=== PATIENT | female | born 1945 | race Caucasian/White ===

== ENCOUNTER 2017-10-25 16:45 | Inpatient (IN) ==
[2017-10-25] MEDS ORDERED: Naloxone 0.4 MG/ML INJ IVP PRN (18:52)
--- NOTE | 2017-10-25 19:09 | Internal Med History&Physical ---
<Charles Montague J - Last Filed: 10/25/17 19:03> Date of Encounter: 10/25/17 Time of Encounter: 19:03 Assessment and Plan (1) N&V (nausea and vomiting) Status: Acute N/V which began yesterday [facility]. She denies any episodes of vomiting today. Resume normal diet and promote fluid intake. No abnormalities noted on metabolic panel. BMP in the am. Antiemetics PRN for n/v Qualifiers: Vomiting type: unspecified Vomiting Intractability: non-intractable Qualified Code(s): R11.2 - Nausea with vomiting, unspecified (2) Elevated troponin Status: Acute Denies any CP, diaphoresis, or SOB. Does not appear to be in acute cardiac distress. Reports multiple episodes of sinus tachycardia lasting approximately 45 seconds this afternoon while at [place]. This is likely the cause for the elevation in troponin. She is currently not on any ASA or statin. d/t elevation in troponins I will start both now. Serial troponins, ekg now and in the am continuous tele continuous spo2 monitoring 81mg ASA QD but I will give 324 ASA now as she has no had any today. Simvastatin 40 mg daily at bedtime lipid panel in the am TTE (3) Sinus tachycardia Status: Acute etiology unclear. She reports no prior h/o cardiac disease with no prior tachycardic episodes. Currently SB with a rate of 55. She denies any CP/ pressure or discomfort. Resting comfortably without any distress and remains hemodynamically stable. continuous tele consult cardio-spoke with Dr. Herrera who has agreed to see the patient (4) HTN (hypertension) Status: Acute Mild HTN at 159/86. She is also bradycardic with a rate of 55. I will refrain from giving IV antihypertensives at this time at the risk of diminishing cardiac output. Continue home antihypertensives Qualifiers: Hypertension type: unspecified Qualified Code(s): I10 - Essential (primary ) hypertension (5) Left leg DVT Status: Acute LLE dx last week at [place]. Was placed on lovenox 65mg sc dialy. Continue this med at current dose. Leg appears to be mildly tender to palpation has palpable circulation in DP/PT Qualifiers: Affected thrombotic vein of extremity: unspecified vein of extremity Chronicity: acute Qualified Code(s): I82.402 - Acute embolism and thrombosis of unspecified deep veins of left lower extremity (6) DVT prophylaxis Status: Acute see plan above Internal Medicine - H&P: HPI Chief complaint: N/V x1 day, tachycardia, elevated troponin Admitted From: Home Plans for Post Hospital Care: Home History of present illness: Ms. Dahl is a 72 year old female with PMH of anxiety, insomia, HTN, GERD, asthma, and diagnosis of DVT in LT lower leg last week. Presents today from [place] d/t elevated troponin and concern for ACS. She states that she has not had any CP at all but did notice some fluttering. She reports a similar event 1 -week ago. She denies any fevers, fatigue, dyspnea, diaphoresis, SOB, syncope. Admits to palpitations, and N/V. While at [place] she was found to have an elevated troponin with a peak of 0.7 with an EKG showing NSR with a rate of 70. Past Med Surg Social Fam HX - Past Medical History Medical history: arthritis, asthma, DVT, GERD, hypertension Psychiatric history: anxiety - Past Surgical History Surgical History: appendectomy, cataract, cholecystectomy, hysterectomy, other - Social History Smoking Status: Never smoker Alcohol use: none Drug use: none - Family History Grandmother Hx Family Cardiac Disorders: Yes ([place]) Hx Family Cancer: Yes (breast) Internal Medicine - H&P: Meds Albuterol Sulfate [Proventil Hfa] 2 puff IH Q4H PRN 10/25/17 [History] Ferrous Sulfate [Iron] 325 mg PO TID 10/25/17 [History] Gabapentin [Neurontin] 300 mg PO DAILY 10/25/17 [History] Hydrocortisone 1% CREAM [Cortaid] 1 appl TP QID 10/25/17 [History] Melatonin 5 mg PO HS PRN 10/25/17 [History] Ondansetron HCl [Zofran] 4 mg PO Q6H PRN 10/25/17 [History] Pantoprazole Sodium [Protonix] 40 mg PO DAILY 10/25/17 [History] Polyethylene Glycol 3350 [MiraLAX] 17 gm PO DAILY 10/25/17 [History] amLODIPine [Norvasc] 5 mg PO DAILY 10/25/17 [History] traZODone [TraZODone] 50 mg PO HS 10/25/17 [History] Aspirin 325 mg PO DAILY 10/26/17 [History] Bisacodyl [Dulcolax] 10 mg PO DAILY PRN 10/26/17 [History] Ibuprofen [Motrin] 400 mg PO Q4H PRN 10/26/17 [History] Rivaroxaban [Xarelto] 15 mg PO BID tablet 10/28/17 [Rx] Tramadol HCl [Ultram] 100 mg PO QAM AND QHS #10 tablet 10/28/17 [Rx] 3 Allergy/AdvReac Type Severity Reaction Status Date / Time Sulfa (Sulfonamide Allergy See Verified 10/25/17 17:59 Antibiotics) Comments All Systems PM: A 10-system review of systems was performed and is negative for pertinent findings except as documented above in the HPI. Review of systems: REVIEW OF SYSTEMS GENERAL: Negative for any nausea, vomiting, fevers, chills, or weight loss. NEUROLOGIC: Negative for any blurry vision, blind spots, double vision, facial asymmetry, dysphagia, dysarthria, hemiparesis, hemisensory deficits, vertigo, ataxia. HEENT: Negative for any head trauma, neck trauma, neck stiffness, photophobia, phonophobia, sinusitis, rhinitis. CARDIAC: Negative for any chest pain, dyspnea on exertion, paroxysmal nocturnal dyspnea, peripheral edema. Positive for tachycardia and palpitations PULMONARY: Negative for any shortness of breath, wheezing, COPD, or TB exposure. GASTROINTESTINAL: Negative for any abdominal pain, bright red blood per rectum, melena. Positive for nausea and vomiting GENITOURINARY: Negative for any dysuria, hematuria, incontinence. INTEGUMENTARY: Negative for any rashes, cuts, insect bites. RHEUMATOLOGIC: Negative for any joint pains, photosensitive rashes, history of vasculitis or kidney problems. HEMATOLOGIC: Negative for any abnormal bruising, frequent infections or bleeding. - Constitutional Vitals: Temp Pulse Resp BP Pulse Ox 98.1 F 52 15 159/86 97 10/25/17 18:01 10/25/17 18:01 10/25/17 18:01 10/25/17 18:01 10/25/17 18:01 General appearance: Present: cooperative, A&O X 3, no acute distress, answers questions appropriately Exam: PHYSICAL EXAMINATION: GENERAL: The patient is a well-developed, well-nourished male in no apparent distress. He is alert and oriented x3. VITAL SIGNS: Temperature 98.4, pulse 72, respirations 18, blood pressure 146/78 , and O2 saturation 96% on room air. HEENT: Head is normocephalic and atraumatic. Extraocular muscles are intact. Pupils are equal, round, and reactive to light and accommodation. Nares appeared normal. Mouth is well hydrated and without lesions. Mucous membranes are moist. Posterior pharynx clear of any exudate or lesions. NECK: Supple. No carotid bruits. No lymphadenopathy or thyromegaly. LUNGS: Clear to auscultation. HEART: Regular rate and rhythm without murmur. ABDOMEN: Soft, nontender, and nondistended. Positive bowel sounds. No hepatosplenomegaly was noted. EXTREMITIES: Without any cyanosis, clubbing, rash, lesions or edema. LLE with mild tenderness to palpation. DVT in LLE dx last week NEUROLOGIC: Cranial nerves II through XII are grossly intact. PSYCHIATRIC: Flat affect, but denies suicidal or homicidal ideations. SKIN: No ulceration or induration present. Internal Med - H&P Results - EKG Data -: EKG Interpreted by Myself EKG shows normal: sinus rhythm Rate: normal - EKG Data Prior EKG available for review: yes When compared to previous EKG: there is no significant change Interpretation IM: normal EKG EKG comments: EKG from [place] shows normal sinus rhythm rate of 70 with non-specific ST changes 10/25/17 19:12 - Diagnostic Studies CT scan - abdomen Status: image reviewed by me Additional comments: no acute abdominal abnormalities per radiology read at [place] Chest x-ray Status: image reviewed by me Additional comments: stable exam per Radiology read from [place] <Carmen New - Last Filed: 11/20/17 08:49> Date of Encounter: 11/20/17 Internal Medicine - H&P: HPI History of present illness: Ms. Dahl is a 72 year old female All Systems PM: A 10-system review of systems was performed and is negative for pertinent findings except as documented above in the HPI. - Constitutional Vitals: Temp Pulse Resp BP Pulse Ox 97.8 F 62 14 146/93 98 10/28/17 11:01 10/28/17 11:01 10/28/17 11:01 10/28/17 11:01 10/28/17 11:01 Internal Med - H&P Results - Labs CBC & Chem 7: 10/28/17 05:48 10/28/17 07:40 - Impressions ITS Impressions Echocardiogram 10/26/17 10:00 Impressions: LVEF 65%. Normal LV chamber size, wall thickness and function. Mild left ventricular diastolic dysfunction. Normal right ventricular structure and function. No evidence of pulmonary hypertension. No significant valvular dysfunction. Left Ventricular Wall Motion: Rest Echo Findings All wall segments showed normal motion. Findings: Study Quality * Technically adequate exam. ECG Findings * Sinus bradycardia. Left Ventricle * LVEF 65%. * Normal LV chamber size, wall thickness and function. * Mild left ventricular diastolic dysfunction. Right Ventricle * Normal right ventricular structure and function. Left Atrium * Mild to moderately dilated left atrium. Right Atrium * Normal right atrial size. Interatrial Septum * Interatrial septum not well evaluated. Aortic Valve * Grossly, trilealfet aortic valve. Normal function. * No aortic regurgitation. * No aortic stenosis. Mitral Valve * Normal mitral valve structure and function. * No mitral regurgitation. * No mitral stenosis. Tricuspid Valve * Normal tricuspid valve structure and function. * Trace tricuspid regurgitation. * No evidence of pulmonary hypertension. Pulmonic Valve * Pulmonic valve not well visualized. Aorta * Normally sized aortic root. Pericardium * The pericardium appears normal. * Appearance is consistent with a {type} mitral valve replacement. Function appears {function{. IVC * Normal IVC dimensions and inspiratory collapse. Pulmonary Artery * Normal visualized portions of the main pulmonary artery. Chest CTA 10/26/17 10:58 IMPRESSION: 2 small PEs to both the left lower lobe and right upper lobe. Mild bibasilar atelectasis. Slight to mild bullous changes. Suggestion of right heart strain despite the small clot burden. D/ / Modesto Burgess MD / Modesto Burgess MD Interpreting Provider: Modesto Burgess MD - Attending Attestation I personally and independently interviewed and examined the patient with ASSISTANT BANQUET MANAGER, and I reviewed the patient's medical record with her. I am in agreement with the assessment and proposed treatment plan. I discussed my findings and recommendation with the patient and answer all questions. The patient's medical records were edited to accurately reflect this encounter.
[2017-10-25] MEDS ORDERED: Aspirin 325 MG TABLET PO ONE (19:38)
[2017-10-25] MEDS: traMADol 50 MG TABLET PO SCH (20:24)
[2017-10-25] MEDS: traZODone 50 MG TABLET PO SCH (20:24)
[2017-10-26] MEDS: Melatonin 3 MG TABLET PO PRN ×2 (00:40→23:42)
[2017-10-26 01:23] LABS: Basophils # 0.1 K/mcL (0.0-0.2); Basophils % 1.1 %; Eosinophils # 0.1 K/mcL (0.0-0.6); Eosinophils % 2.2 %; Hemoglobin 11.7 g/dL (11.5-15.4); Immature Granulocytes % 0.3 % (0-4); Lymphocytes # 1.6 K/mcL (0.6-4.6); Mean Corpuscular HGB Conc 31.6 g/dL (31.6-35.5); Mean Corpuscular Hemoglobin 27.1 pg (28.0-33.3); Mean Corpuscular Volume 85.8 fL (83.0-100.0); Monocytes # 0.7 K/mcL (0.0-1.3); Monocytes % 10.4 %; Neutrophils # 3.8 K/mcL (1.6-8.9); Platelet Count 316 K/mcL (140-400); Red Blood Count 4.31 M/mcL (3.82-4.97); Red Cell Distribution Width 19.3 % (11.5-14.5)
[2017-10-26 01:36] LABS: BUN/Creatinine Ratio 16 (6-26); Blood Urea Nitrogen 12 mg/dL (8-23); Carbon Dioxide 23 mEq/L (23-29); Chloride 111 mEq/L (98-107); Glucose 77 mg/dL (70-105); Osmolality,Calculated 293 (280-300); Potassium 3.3 mEq/L (3.5-5.1); Sodium 142 mEq/L (136-145); eGFR For African Americans > 60 (> 60); eGFR For Non-African Americans > 60 (> 60)
[2017-10-26] MEDS: Ondansetron 4 MG/2 ML VIAL IVP SCH ×5 (05:22→23:43)
[2017-10-26] MEDS ORDERED: *HR* Enoxaparin 80 MG/0.8 ML SYRINGE SQ SCH (09:00)
[2017-10-26] MEDS: traMADol 50 MG TABLET PO SCH ×2 (09:03→21:19)
[2017-10-26] MEDS: amLODIPine 5 MG TABLET PO SCH (09:03)
[2017-10-26] MEDS: Aspirin 81 MG TAB.CHEW PO SCH (09:03)
[2017-10-26] MEDS: Gabapentin 300 MG CAPSULE PO SCH (09:03)
--- NOTE | 2017-10-26 09:56 | Cardiology Consult Note ---
<Ke Lanza - Last Filed: 10/26/17 11:03> Date of Encounter: 10/26/17 Time of Encounter: 09:15 Assessment and Plan (1) Elevated troponin Current Visit: Yes Status: Acute Patient presented with elevated troponin level at 0.07; this has since decreased to 0.06. -Currently denies having any chest pain or palpitations. -Echocardiogram has been ordered. -Continuous telemetry and SPO2 monitoring. -81 mg ASA daily -Serial troponin. -Possible LHC tomorrow pending results of LE doppler and CTA chest. (2) Sinus bradycardia Current Visit: Yes Status: Acute Patient presented with heart rate of 55 bpm. Currently on Norvasc 5 mg by mouth daily (3) HTN (hypertension) Current Visit: Yes Status: Acute Norvasc 5 mg by mouth daily. Avoid the use of IV hypertensives due to bradycardia. Current blood pressure is 129/84. Qualifiers: Hypertension type: unspecified Qualified Code(s): I10 - Essential (primary ) hypertension (4) Left leg DVT Current Visit: Yes Status: Acute LLE dx last week at [place]. -Was placed on lovenox 65mg sc dialy. -Leg appears to be mildly tender to palpation has palpable circulation in DP/PT -Admits to 2 other blood clots in the same leg in the last 3 years. Plan: -LE doppler ordered; CTA of chest to rule out PE Qualifiers: Affected thrombotic vein of extremity: unspecified vein of extremity Chronicity: acute Qualified Code(s): I82.402 - Acute embolism and thrombosis of unspecified deep veins of left lower extremity Discussion w patient/family: The assessment and plan as outlined above was discussed with the patient and/or family members who expressed understanding and agreement. All questions were answered. Thank you for involving us in the care of your patient. Please call with any questions. History of Present Illness Consult date: 10/26/17 Chief complaint: Nausea and vomiting, palpitations History of present illness: Ms. Dahl is a 72 year old female with a past medical history of anxiety, insomnia, hypertension, GERD, asthma, and DVT in L lower extremity presented to the emergency department for ACS evaluation. Patient presented from [place]. Patient stated that she felt nausea and vomiting while at [facility] the previous day. She complained of several episodes of palpitations, lasting approximately 45 seconds. During these episodes, patient denied having any chest pain. She was found to have an elevated troponin level with a peak of 0.7 , EKG demonstrated normal sinus rhythm with a heart rate of 70. Upon presentation to the hospital, patient had a low heart rate of 55 bpm. Denied having any chest pain, pressure, or discomfort. Denied having any previous cardiac history. Blood pressure was elevated at 159/86. All other vital signs were within normal limits. Was placed on continuous cardiac monitoring. Echocardiogram was ordered. Patient was seen and examined at bedside this morning. Currently has no complaints at this time. Denies having any chest pain, palpitations, shortness of breath, fever, chills, nausea, or vomiting. Past Med Surg Social Fam HX - Past Medical History Medical history: arthritis, asthma, DVT, GERD, hypertension Psychiatric history: anxiety - Past Surgical History Surgical History: appendectomy, cataract, cholecystectomy, hysterectomy, other - Social History Smoking Status: Never smoker Alcohol use: none Drug use: none - Family History Grandmother Hx Family Cardiac Disorders: Yes ([place]) Hx Family Cancer: Yes (breast) Medications and Allergies Albuterol Sulfate [Proventil Hfa] 2 puff IH Q4H PRN 10/25/17 [History] Enoxaparin [Lovenox] 65 mg SQ DAILY 10/25/17 [History] Ferrous Sulfate [Iron] 325 mg PO TID 10/25/17 [History] Gabapentin [Neurontin] 300 mg PO DAILY 10/25/17 [History] Hydrocortisone 1% CREAM [Cortaid] 1 appl TP QID 10/25/17 [History] Melatonin 5 mg PO HS PRN 10/25/17 [History] Ondansetron HCl [Zofran] 4 mg PO Q6H PRN 10/25/17 [History] Pantoprazole Sodium [Protonix] 40 mg PO DAILY 10/25/17 [History] Polyethylene Glycol 3350 [MiraLAX] 17 gm PO DAILY 10/25/17 [History] Tramadol HCl [Ultram] 100 mg PO QAM AND QHS 10/25/17 [History] amLODIPine [Norvasc] 5 mg PO DAILY 10/25/17 [History] traZODone [TraZODone] 50 mg PO HS 10/25/17 [History] Aspirin 325 mg PO DAILY 10/26/17 [History] Bisacodyl [Dulcolax] 10 mg PO DAILY PRN 10/26/17 [History] Ibuprofen [Motrin] 400 mg PO Q4H PRN 10/26/17 [History] 3 Allergy/AdvReac Type Severity Reaction Status Date / Time Sulfa (Sulfonamide Allergy See Verified 10/25/17 17:59 Antibiotics) Comments All Systems Review: A 10-system review of systems was performed and is negative for pertinent findings except as documented above in the HPI. - Constitutional Constitutional: no fatigue, no fever(s), no frequent falls, no lethargy - Cardiovascular Cardiovascular: no diaphoresis, no dyspnea at rest, no dyspnea on exertion, no irregular heart rhythm, no radiating jaw, neck or arm pain - Neurological Neurological: no syncope Physical Examination Vital Signs, Last 4 Hours Temp Pulse Resp BP Pulse Ox 10/26/17 07:34 97.7 F 50 18 162/95 95 General: Conversant, No Apparent Distress HEENT: Atraumatic, Normocephaly, Mucus Membranes Moist Neck: No JVD, Normal carotid pulses Cardiac: Normal S1 and S2, No Murmur Lungs: Normal Breath Sounds, No Wheeze, Rales, Rhonchi Neuro: Alert and responsive, No focal deficits noted Skin: No rashes noted on visualized skin Musculoskeletal: No Chest Wall Tenderness Extremities: No Clubbing, No Cyanosis, No Edema, Normal Pulses Results 10/26/17 00:50 10/26/17 00:50 Lab Results 10/25/17 10/26/17 10/26/17 19:37 00:50 00:50 WBC 6.2 Hgb 11.7 Hct 37.0 Plt Count 316 Sodium Potassium Chloride Carbon Dioxide BUN Creatinine Glucose Calcium Troponin I 0.07 H* 0.06 H* 10/26/17 00:50 WBC Hgb Hct Plt Count Sodium 142 Potassium 3.3 L Chloride 111 H Carbon Dioxide 23 BUN 12 Creatinine 0.73 Glucose 77 Calcium 9.0 Troponin I Consult Discharge Plan - Plan Referrals: Terell Castillo MD [Primary Care Provider] - <Jens Herrera - Last Filed: 10/26/17 20:16> Date of Encounter: 10/26/17 Time of Encounter: 11:05 - Attending Attestation I examined this patient and my medical decision-making was reviewed with the Resident Physician. I agree with the documented findings, disposition and treatment plan as described except to the extent set forth below. 1. Elevated troponin: Unclear significance, adynamic, no acute EKG changes, will continue to monitor, echo ordered to eval LV functionm, discussed left heart cath, await results of lower ext doppler and CT scan, will monitor renal function after dye load before proceed left heart catheterization. 2. DVT reported left leg one week ago, will repeat lower ext doppler, Chest CT to rule out PE 3. Sinus bradycardia, continue to monitor 4. Hypertension, controlled. Assessment and Plan Discussion w patient/family: The assessment and plan as outlined above was discussed with the patient and/or family members who expressed understanding and agreement. All questions were answered. Thank you for involving us in the care of your patient. Please call with any questions. History of Present Illness History of present illness: Ms. Dahl is a 72 year old female All Systems Review: A 10-system review of systems was performed and is negative for pertinent findings except as documented above in the HPI. Results 10/26/17 00:50 10/26/17 00:50 Lab Results 10/25/17 10/26/17 10/26/17 19:37 00:50 00:50 WBC 6.2 Hgb 11.7 Hct 37.0 Plt Count 316 Sodium Potassium Chloride Carbon Dioxide BUN Creatinine Glucose Calcium Troponin I 0.07 H* 0.06 H* 10/26/17 10/26/17 00:50 09:16 WBC Hgb Hct Plt Count Sodium 142 Potassium 3.3 L Chloride 111 H Carbon Dioxide 23 BUN 12 Creatinine 0.73 Glucose 77 Calcium 9.0 Troponin I 0.05 H*
--- NOTE | 2017-10-26 11:25 | Internal Med Progress Note ---
Date of Encounter: 10/26/17 Time of Encounter: 11:22 - Assessment and plan (1) Elevated troponin Current Visit: Yes Status: Acute Assessment and plan: Troponin trended down.. peaked @ 0.07 No CP EKG showed NSR, in complete RBBB, Non specific ST T changes inferior and lateral leads Card consulted Will ordered 2 D Echo Reasonable to check CTA of chest to r/o PE given recent LLL DVT and on sub therapeutic dose of anti coag meds Inc Lovenox to 65 mg BID now cont close monitoring (2) Intractable nausea and vomiting Current Visit: Yes Status: Acute Assessment and plan: unclear etiology could be viral GE vs ?? MD improved cont symptomatic and supportive care Qualifiers: Qualified Code(s): R11.2 - Nausea with vomiting, unspecified (3) HTN (hypertension) Current Visit: Yes Status: Acute Assessment and plan: stable with home meds Qualifiers: Hypertension type: unspecified Qualified Code(s): I10 - Essential (primary ) hypertension (4) Sinus bradycardia Current Visit: Yes Status: Acute Assessment and plan: HR in 50's now Not on any B gian cont close monitoring asymptomatic now (5) Left leg DVT Current Visit: Yes Status: Acute Assessment and plan: was on sub therapeutic lovenox at home changed to 1mg /kg BID eventually will switch to PO Xarelto Also ordered venous doppler Qualifiers: Affected thrombotic vein of extremity: unspecified vein of extremity Chronicity: acute Qualified Code(s): I82.402 - Acute embolism and thrombosis of unspecified deep veins of left lower extremity - Subjective Interval history: Ms. Dahl is a 72 year old female with PMH of anxiety, insomnia, HTN, GERD, asthma, and recent diagnosis of DVT in LT lower leg last week currently on Lovenox 65mg SQ daily, was transferred to our hospital from [place] d/t elevated troponin and concern for ACS. Pt did go there with sudden onset of intractable nausea and vomiting with epigastric discomfort. She denied any CP / SOB. Her nausea / vomiting are better today. feels little better today. Still has pain in Left leg - Constitutional Vitals: Temp Pulse Resp BP Pulse Ox 97.7 F 50 18 162/95 95 10/26/17 07:34 10/26/17 07:34 10/26/17 07:34 10/26/17 07:34 10/26/17 07:34 General appearance: Present: cooperative, A&O X 3, no acute distress, answers questions appropriately - Head Head exam: Present: atraumatic, normal inspection - Neck Neck exam general surgery: Present: supple - Respiratory Respiratory exam: Present: decreased breath sounds, wheezes. Absent: rales, respiratory distress, rhonchi - Cardiovascular Cardiovascular exam: Present: bradycardia, +S1, +S2 - GI/Abdominal GI/Abdominal exam: Present: normal bowel sounds, soft. Absent: distended, rebound, rigid, tenderness - Extremities Exam Extremities exam: Present: pedal edema (left lower leg), tenderness (left leg). Absent: calf tenderness - Back Exam Back exam: Absent: CVA tenderness (L), CVA tenderness (R) - Neurological Exam Neurological exam: Present: alert, oriented X3 - Psychiatric Psychiatric exam: Present: normal affect, normal mood Internal Medicine: Result - Labs CBC & Chem 7: 10/26/17 00:50 10/26/17 00:50 Labs: Short CBC 10/26/17 Range/Units 00:50 WBC 6.2 (4.3-11.1) K/mcL Hgb 11.7 (11.5-15.4) g/dL Hct 37.0 (35.3-44.9) % Plt Count 316 (140-400) K/mcL Neutrophils # 3.8 (1.6-8.9) K/mcL BMP 10/26/17 00:50 Sodium 142 Potassium 3.3 L Chloride 111 H Carbon Dioxide 23 BUN 12 Creatinine 0.73 Glucose 77 Calcium 9.0 Cardiac Enzymes 10/25/17 10/26/17 10/26/17 Range/Units 19:37 00:50 09:16 Troponin I 0.07 H* 0.06 H* 0.05 H* (< 0.04) ng/mL Consult Discharge Plan - Plan Referrals: Terell Castillo MD [Primary Care Provider] -
[2017-10-26] MEDS: *HR* Enoxaparin 60 MG/0.6 ML SYRINGE SQ SCH (21:19)
[2017-10-26] MEDS: traZODone 50 MG TABLET PO SCH (21:19)
[2017-10-27] MEDS: Ondansetron 4 MG/2 ML VIAL IVP SCH (05:23)
[2017-10-27] MEDS ORDERED: Ondansetron 4 MG/2 ML VIAL IVP PRN (07:59)
[2017-10-27 09:35] LABS: BUN/Creatinine Ratio 26 (6-26); Blood Urea Nitrogen 18 mg/dL (8-23); Carbon Dioxide 22 mEq/L (23-29); Chloride 111 mEq/L (98-107); Chol/HDL Ratio 2.8 (0-4.9); Cholesterol 156 mg/dL (< 200); Glucose 79 mg/dL (70-105); HDL Cholesterol 55 mg/dL (40-59); LDL Cholesterol,Calculated 85 mg/dL (0-99); Osmolality,Calculated 293 (280-300); Potassium 4.4 mEq/L (3.5-5.1); Sodium 141 mEq/L (136-145); Triglycerides 79 mg/dL (< 150); eGFR For African Americans > 60 (> 60); eGFR For Non-African Americans > 60 (> 60)
[2017-10-27] MEDS: Gabapentin 300 MG CAPSULE PO SCH (09:49)
[2017-10-27] MEDS: amLODIPine 5 MG TABLET PO SCH (09:49)
[2017-10-27] MEDS: Aspirin 81 MG TAB.CHEW PO SCH (09:49)
[2017-10-27] MEDS: traMADol 50 MG TABLET PO SCH ×2 (09:50→20:39)
[2017-10-27] MEDS: *HR* Enoxaparin 60 MG/0.6 ML SYRINGE SQ SCH ×2 (09:50→20:40)
--- NOTE | 2017-10-27 10:09 | Cardiology Progress Note ---
Date of Encounter: 10/27/17 Time of Encounter: 10:00 Assessment and Plan (1) Pulmonary emboli Current Visit: Yes Status: Acute CTA demonstrated the following: -2 small PEs to both the left lower lobe and right upper lobe. -Mild bibasilar atelectasis. -Slight to mild bullous changes. -Suggestion of right heart strain despite the small clot burden. -Patient currently asymptomatic. Plan: -Lovenox dose 65mg SQ BID -ECHO ordered Qualifiers: Qualified Code(s): I26.99 - Other pulmonary embolism without acute cor pulmonale (2) Elevated troponin Current Visit: Yes Status: Acute Patient presented with elevated troponin level at 0.07; this has since decreased to 0.05. -Currently denies having any chest pain or palpitations. -Echocardiogram has been ordered. -Continuous telemetry and SPO2 monitoring. -81 mg ASA daily (3) Sinus bradycardia Current Visit: Yes Status: Acute Patient presented with heart rate of 55 bpm. Currently on Norvasc 5 mg by mouth daily (4) HTN (hypertension) Current Visit: Yes Status: Acute Norvasc 5 mg by mouth daily. Avoid the use of IV hypertensives due to bradycardia. Qualifiers: Hypertension type: unspecified Qualified Code(s): I10 - Essential (primary ) hypertension (5) Left leg DVT Current Visit: Yes Status: Acute LLE dx last week at [facility]. -Was placed on lovenox 65mg sc dialy. -Leg appears to be mildly tender to palpation has palpable circulation in DP/PT -Admits to 2 other blood clots in the same leg in the last 3 years. LE Doppler on10/26/17 demonstrated: -Normal RLE deep and superficial venous exam. 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 -Normal LLE superficial venous exam. Plan: -[place]inue Lovenox 65 mg SQ BID Qualifiers: Affected thrombotic vein of extremity: unspecified vein of extremity Chronicity: acute Qualified Code(s): I82.402 - Acute embolism and thrombosis of unspecified deep veins of left lower extremity Discussion w patient/family: The assessment and plan as outlined above was discussed with the patient and/or family members who expressed understanding and agreement. All questions were answered. Thank you for involving us in the care of your patient. Please call with any questions. Subjective Interval history: Patient seen and examined at bedside this morning. Patient denies having chest pain, shortness of breath, or palpitations. Patient is resting comfortably in bed and has no complaints at this time. Cardiology will sign off. Objective Vital Signs, Last 4 Hours Temp Pulse Resp BP Pulse Ox 10/27/17 06:47 97.7 F 94 14 128/89 98 General: Conversant, No Apparent Distress HEENT: Atraumatic, Normocephaly, Mucus Membranes Moist Neck: No JVD, Normal carotid pulses Cardiac: Reg Rate and Rhythm, Normal S1 and S2, No Murmur Lungs: Normal Breath Sounds, No Wheeze, Rales, Rhonchi Neuro: Alert and responsive, No focal deficits noted Skin: No rashes noted on visualized skin Musculoskeletal: No Chest Wall Tenderness Extremities: No Clubbing, No Cyanosis, No Edema, Normal Pulses Results 10/26/17 00:50 10/27/17 07:49 Lab Results 10/26/17 10/27/17 09:16 07:49 Sodium 141 Potassium 4.4 Chloride 111 H Carbon Dioxide 22 L BUN 18 Creatinine 0.69 Glucose 79 Calcium 9.0 Troponin I 0.05 H* Consult Discharge Plan - Plan Referrals: Terell Castillo MD [Primary Care Provider] -
--- NOTE | 2017-10-27 12:03 | Internal Med Progress Note ---
Date of Encounter: 10/27/17 Time of Encounter: 12:00 - Assessment and plan (1) Elevated troponin Current Visit: Yes Status: Acute Assessment and plan: likely secondary to acute PE Troponin trended down.. peaked @ 0.07 No CP EKG showed NSR, in complete RBBB, Non specific ST T changes inferior and lateral leads Card on board and consultation appreciated no further work up recommended at this time (2) HTN (hypertension) Current Visit: Yes Status: Acute Assessment and plan: stable with home meds Qualifiers: Hypertension type: unspecified Qualified Code(s): I10 - Essential (primary ) hypertension (3) Intractable nausea and vomiting Current Visit: Yes Status: Resolved Assessment and plan: resolved Qualifiers: Qualified Code(s): R11.2 - Nausea with vomiting, unspecified (4) Left leg DVT Current Visit: Yes Status: Acute Assessment and plan: was on sub therapeutic lovenox at home changed to 1mg /kg BID eventually will switch to PO Xarelto will start xarelto in am PT/OT evaluation requested Qualifiers: Affected thrombotic vein of extremity: unspecified vein of extremity Chronicity: acute Qualified Code(s): I82.402 - Acute embolism and thrombosis of unspecified deep veins of left lower extremity (5) Pulmonary emboli Current Visit: Yes Status: Acute Assessment and plan: b/l PE currently on lovenox 1mg/kg SQ BID will start Xarelto in am outpatient follow up with hematology Qualifiers: Pulmonary embolism type: other Chronicity: acute Acute cor pulmonale presence: without acute cor pulmonale Qualified Code(s): I26.99 - Other pulmonary embolism without acute cor pulmonale (6) Sinus bradycardia Current Visit: Yes Status: Acute Assessment and plan: HR in 50's now Not on any B gian cont close monitoring asymptomatic now (7) DVT prophylaxis Current Visit: Yes Status: Acute Assessment and plan: lovenox SQ - Subjective Interval history: Pt seen and examined at bedside. Resting in chair and denies any discomfort. Pt reports of being a resident of [facility] and states she is wheel chair bound at baseline States she used to be on coumadin however after her LLE DVT, her PCP switched her to Lovenox. She was noted to be on Lovenox SQ once a day and is currently admitted for acute PE. She states she is comfortable with using Lovenox SQ. - Constitutional Vitals: Temp Pulse Resp BP Pulse Ox 98.0 F 88 14 137/82 92 10/27/17 10:39 10/27/17 10:39 10/27/17 10:39 10/27/17 10:39 10/27/17 10:39 General appearance: Present: cooperative, A&O X 3, no acute distress, answers questions appropriately - Head Head exam: Present: atraumatic, normocephalic - Respiratory Respiratory exam: Present: CTAB. Absent: respiratory distress, wheezes - Cardiovascular Cardiovascular exam: Present: RRR, +S1, +S2. Absent: diastolic murmur, gallop, rubs, systolic murmur - GI/Abdominal GI/Abdominal exam: Present: normal bowel sounds, soft, no peritoneal signs. Absent: distended, tenderness - Extremities Exam Extremities exam: Present: warm, radial pulses palpable and symmetrical. Absent : calf tenderness, cyanotic, pedal edema - Neurological Exam Neurological exam: Present: alert, oriented X3 - Psychiatric Psychiatric exam: Present: normal affect, normal mood Internal Medicine: Result - Labs CBC & Chem 7: 10/26/17 00:50 10/27/17 07:49 Labs: BMP 10/27/17 07:49 Sodium 141 Potassium 4.4 Chloride 111 H Carbon Dioxide 22 L BUN 18 Creatinine 0.69 Glucose 79 Calcium 9.0 - Impressions Impressions Echocardiogram 10/26/17 10:00 Impressions: LVEF 65%. Normal LV chamber size, wall thickness and function. Mild left ventricular diastolic dysfunction. Normal right ventricular structure and function. No evidence of pulmonary hypertension. No significant valvular dysfunction. Left Ventricular Wall Motion: Rest Echo Findings All wall segments showed normal motion. Findings: Study Quality * Technically adequate exam. ECG Findings * Sinus bradycardia. Left Ventricle * LVEF 65%. * Normal LV chamber size, wall thickness and function. * Mild left ventricular diastolic dysfunction. Right Ventricle * Normal right ventricular structure and function. Left Atrium * Mild to moderately dilated left atrium. Right Atrium * Normal right atrial size. Interatrial Septum * Interatrial septum not well evaluated. Aortic Valve * Grossly, trilealfet aortic valve. Normal function. * No aortic regurgitation. * No aortic stenosis. Mitral Valve * Normal mitral valve structure and function. * No mitral regurgitation. * No mitral stenosis. Tricuspid Valve * Normal tricuspid valve structure and function. * Trace tricuspid regurgitation. * No evidence of pulmonary hypertension. Pulmonic Valve * Pulmonic valve not well visualized. Aorta * Normally sized aortic root. Pericardium * The pericardium appears normal. * Appearance is consistent with a {type} mitral valve replacement. Function appears {function{. IVC * Normal IVC dimensions and inspiratory collapse. Pulmonary Artery * Normal visualized portions of the main pulmonary artery. Chest CTA 10/26/17 10:58 IMPRESSION: 2 small PEs to both the left lower lobe and right upper lobe. Mild bibasilar atelectasis. Slight to mild bullous changes. Suggestion of right heart strain despite the small clot burden. D/ / Modesto Burgess MD / Modesto Burgess MD Interpreting Provider: Modesto Burgess MD Consult Discharge Plan - Plan Referrals: Terell Castillo MD [Primary Care Provider] -
[2017-10-27] MEDS: traZODone 50 MG TABLET PO SCH (23:20)
[2017-10-28 06:16] LABS: Basophils # 0.1 K/mcL (0.0-0.2); Basophils % 1.2 %; Eosinophils # 0.6 K/mcL (0.0-0.6); Eosinophils % 7.5 %; Hematocrit 41.5 % (35.3-44.9); Immature Granulocytes % 2.7 % (0-4); Lymphocytes # 2.3 K/mcL (0.6-4.6); Lymphocytes % 30.2 %; Mean Corpuscular HGB Conc 31.3 g/dL (31.6-35.5); Mean Corpuscular Hemoglobin 26.9 pg (28.0-33.3); Mean Corpuscular Volume 85.7 fL (83.0-100.0); Mean Platelet Volume 11.5 fL (9.4-12.4); Monocytes # 0.7 K/mcL (0.0-1.3); Monocytes % 9.7 %; Neutrophils # 3.6 K/mcL (1.6-8.9); Nucleated Red Blood Cells 1.3 /100 WBC (0); Platelet Count 313 K/mcL (140-400); Red Blood Count 4.84 M/mcL (3.82-4.97); Red Cell Distribution Width 19.1 % (11.5-14.5); Segmented Neutrophils % 48.7 %
[2017-10-28 08:02] LABS: BUN/Creatinine Ratio 24 (6-26); Blood Urea Nitrogen 16 mg/dL (8-23); Calcium 8.7 mg/dL (8.6-10.3); Carbon Dioxide 24 mEq/L (23-29); Chloride 110 mEq/L (98-107); Glucose 83 mg/dL (70-105); Magnesium 1.7 mg/dL (1.6-2.6); Osmolality,Calculated 290 (280-300); Phosphorous 4.4 mg/dL (2.7-4.5); Potassium 4.3 mEq/L (3.5-5.1); Sodium 140 mEq/L (136-145); eGFR For African Americans > 60 (> 60); eGFR For Non-African Americans > 60 (> 60)
[2017-10-28] MEDS ORDERED: *HR* Rivaroxaban 15 MG TABLET PO SCH (09:00)
[2017-10-28] MEDS: Aspirin 81 MG TAB.CHEW PO SCH (09:43)
[2017-10-28] MEDS: amLODIPine 5 MG TABLET PO SCH (09:43)
[2017-10-28] MEDS: traMADol 50 MG TABLET PO SCH (09:44)
[2017-10-28] MEDS: Gabapentin 300 MG CAPSULE PO SCH (09:44)
[2017-10-28 11:03] VITALS: BP 146/93
--- NOTE | 2017-10-28 11:14 | Discharge Summary ---
Date of Encounter: 10/28/17 Time of Encounter: 11:12 - Discharge Diagnosis (1) Elevated troponin Priority: Secondary Status: Acute (2) HTN (hypertension) Priority: Secondary Status: Chronic Qualifiers: Hypertension type: unspecified Qualified Code(s): I10 - Essential (primary ) hypertension (3) Intractable nausea and vomiting Priority: Secondary Status: Resolved Qualifiers: Vomiting type: unspecified Qualified Code(s): R11.2 - Nausea with vomiting , unspecified (4) Left leg DVT Priority: Secondary Status: Chronic Qualifiers: Affected thrombotic vein of extremity: unspecified vein of extremity Chronicity: acute Qualified Code(s): I82.402 - Acute embolism and thrombosis of unspecified deep veins of left lower extremity (5) Pulmonary emboli Priority: Primary Status: Acute Qualifiers: Pulmonary embolism type: other Chronicity: acute Acute cor pulmonale presence: without acute cor pulmonale Qualified Code(s): I26.99 - Other pulmonary embolism without acute cor pulmonale (6) Sinus bradycardia Priority: Secondary Status: Chronic (7) DVT prophylaxis Priority: Secondary Status: Acute - Discharge Medications Prescriptions: Tramadol HCl [Ultram] 100 mg PO QAM AND QHS #10 tablet Home Medications: Albuterol Sulfate [Proventil Hfa] 2 puff IH Q4H PRN 10/25/17 [History] Ferrous Sulfate [Iron] 325 mg PO TID 10/25/17 [History] Gabapentin [Neurontin] 300 mg PO DAILY 10/25/17 [History] Hydrocortisone 1% CREAM [Cortaid] 1 appl TP QID 10/25/17 [History] Melatonin 5 mg PO HS PRN 10/25/17 [History] Ondansetron HCl [Zofran] 4 mg PO Q6H PRN 10/25/17 [History] Pantoprazole Sodium [Protonix] 40 mg PO DAILY 10/25/17 [History] Polyethylene Glycol 3350 [MiraLAX] 17 gm PO DAILY 10/25/17 [History] amLODIPine [Norvasc] 5 mg PO DAILY 10/25/17 [History] traZODone [TraZODone] 50 mg PO HS 10/25/17 [History] Aspirin 325 mg PO DAILY 10/26/17 [History] Bisacodyl [Dulcolax] 10 mg PO DAILY PRN 10/26/17 [History] Ibuprofen [Motrin] 400 mg PO Q4H PRN 10/26/17 [History] Rivaroxaban [Xarelto] 15 mg PO BID tablet 10/28/17 [Rx] Tramadol HCl [Ultram] 100 mg PO QAM AND QHS #10 tablet 10/28/17 [Rx] Allergies/Adverse Reactions: 3 Allergy/AdvReac Type Severity Reaction Status Date / Time Sulfa (Sulfonamide Allergy See Verified 10/25/17 17:59 Antibiotics) Comments Procedures/tests Complete & Pending: Procedures Performed prior 72 hours Category Date Time Status CTA chest [CT angio chest] [CT] Stat Cat Scan 10/26/17 10:58 Completed EKG [ECG 12 lead ECG] [ECG] AM 0600 Y 10/26/17 06:00 Ordered EKG [ECG 12 lead ECG] [ECG] Routine Y 10/25/17 19:02 Ordered EV echocardiogram Routine Y 10/26/17 10:00 Completed Venous Doppler [EV venous imaging LE BI] Stat Y 10/26/17 10:59 Completed Date of admission: 10/27/17 10:02 Primary care physician: Terell Castillo MD Consults: 10/27/17 10:40 Consult to Physical Therapy [CONS] Routine Comment: Evaluate, develop and implement POC Reason for Consult: difficulty with transfers OT [Consult to Occupational Therapy] [CONS] Routine Comment: Evaluate, develop and implement POC Reason for Consult: Difficutly with most ADL's 10/27/17 12:23 Consult to Shoder Filler [CONS] Routine Reason for SW Consult: From [facility] 10/25/17 19:10 Consult to Cardiology [CONS] Routine Comment: Consulting Provider: Cardiology Priscila Reason for Consult: unexplained tachycardia and elevated troponins Call Completed: Yes Discharging clinician: Elmira Alanis Anticipated date of discharge: 10/28/17 - Patient Status Disposition: Transfer SNF Condition: Good Functional capacity at discharge: wheelchair bound Overall status at discharge: patient is back to baseline - Discharge Instructions Follow Up With: Terell Castillo MD [Primary Care Provider] - Additional Instructions: Please follow up with your primary care physician within five days after your discharge from the hospital. Please follow up with hematology within one week after your discharge from the hospital. Your home dose of lovenox has been discontinued and you are started on Xarelto. Please take Xarelto 15mg twice a day for the first 21 days, followed by 20mg once a day. Start date of Xarelto: 10/28/17. Resume all other home medications as prescribed by your primary care physician. - Diet and Activity Activity: as per physical therapy Diet: low salt diet Hospital course: Ms. Dahl is a 72 year old female with PMH of HTN, GERd, Asthma, LLE DVT ( diagnosed one week ago) was admitted for acute PE and elevated TNI. She was started on Lovenox therapeutic dose and was seen by cardiology. She was found to be on a subtherapeutic dose of lovenox prior to her hospitalization. 2D echo did not show any right hear strain and elevated TNI were secondary to the acute PE. No further cardiac intervention was recommended. Pt was started on Xarelto and lovenox was discontinued. She was evaluated by physical therapy and ECF was recommended. She is medically stable for discharge and will be discharged to ECF pending placement. - Time Spent with Patient Total time spent providing and/or coordinating discharge services: Less than 30 minutes - Constitutional Vitals: Temp Pulse Resp BP Pulse Ox 97.8 F 62 14 146/93 98 10/28/17 11:01 10/28/17 11:01 10/28/17 11:01 10/28/17 11:01 10/28/17 11:01 General appearance: Present: cooperative, A&O X 3, no acute distress, answers questions appropriately - Head Head exam: Present: atraumatic, normocephalic - Eye Eye exam: Present: conjuntiva pink, sclera anicteric - Respiratory Respiratory exam: Present: CTAB. Absent: respiratory distress, wheezes - Cardiovascular Cardiovascular exam: Present: RRR, +S1, +S2. Absent: diastolic murmur, gallop, rubs, systolic murmur - GI/Abdominal GI/Abdominal exam: Present: normal bowel sounds, soft, no peritoneal signs. Absent: distended, tenderness - Extremities Exam Extremities exam: Present: warm, radial pulses palpable and symmetrical. Absent : calf tenderness, cyanotic, pedal edema - Neurological Exam Neurological exam: Present: alert, oriented X3 - Psychiatric Psychiatric exam: Present: normal affect, normal mood
--- NOTE | 2017-10-28 11:21 | Physician Discharge Referral ---
ExtendedCare Referral Info Transfer To: ECF Provider in Charge after Transfer: PCP - Diagnosis (1) Elevated troponin Priority: Secondary Status: Acute (2) HTN (hypertension) Priority: Secondary Status: Chronic (3) Intractable nausea and vomiting Priority: Secondary Status: Resolved (4) Left leg DVT Priority: Secondary Status: Chronic (5) Pulmonary emboli Priority: Primary Status: Acute (6) Sinus bradycardia Priority: Secondary Status: Chronic (7) DVT prophylaxis Priority: Secondary Status: Acute - Transfer Medications Prescriptions: Tramadol HCl [Ultram] 100 mg PO QAM AND QHS #10 tablet Home Medications: Albuterol Sulfate [Proventil Hfa] 2 puff IH Q4H PRN 10/25/17 [History] Ferrous Sulfate [Iron] 325 mg PO TID 10/25/17 [History] Gabapentin [Neurontin] 300 mg PO DAILY 10/25/17 [History] Hydrocortisone 1% CREAM [Cortaid] 1 appl TP QID 10/25/17 [History] Melatonin 5 mg PO HS PRN 10/25/17 [History] Ondansetron HCl [Zofran] 4 mg PO Q6H PRN 10/25/17 [History] Pantoprazole Sodium [Protonix] 40 mg PO DAILY 10/25/17 [History] Polyethylene Glycol 3350 [MiraLAX] 17 gm PO DAILY 10/25/17 [History] amLODIPine [Norvasc] 5 mg PO DAILY 10/25/17 [History] traZODone [TraZODone] 50 mg PO HS 10/25/17 [History] Aspirin 325 mg PO DAILY 10/26/17 [History] Bisacodyl [Dulcolax] 10 mg PO DAILY PRN 10/26/17 [History] Ibuprofen [Motrin] 400 mg PO Q4H PRN 10/26/17 [History] Rivaroxaban [Xarelto] 15 mg PO BID tablet 10/28/17 [Rx] Tramadol HCl [Ultram] 100 mg PO QAM AND QHS #10 tablet 10/28/17 [Rx] Allergies/Adverse Reactions: 3 Allergy/AdvReac Type Severity Reaction Status Date / Time Sulfa (Sulfonamide Allergy See Verified 10/25/17 17:59 Antibiotics) Comments - Respiratory Orders Smoking Cessation: Smoking cessation has been advised. For more information, call the [place] Tobacco Quit Line at 4-188-LLQH-NOW. - Treatments List/Other: Please follow up with your primary care physician within five days after your discharge from the hospital. Please follow up with hematology within one week after your discharge from the hospital. Your home dose of lovenox has been discontinued and you are started on Xarelto. Please take Xarelto 15mg twice a day for the first 21 days, followed by 20mg once a day. Start date of Xarelto: 10/28/17. Resume all other home medications as prescribed by your primary care physician. CERTIFICATION: I certify that the transfer of the above named patient to an Extended Care Facility is necessary for the continuing treatment of the diagnosis listed. The above information is true and accurate reflection of patient's current condition. Confidential - Redisclosure prohibited without a patient's written consent.
== END 2017-10-28 15:40 | DRG 176 ==
LOC: 2NENU → PREINTOOBSV 16:52 → SUATTDRO 17:40
PROVIDERS: ADMIT Internal Medicine Nephrology; ATTEND Internal Medicine

== ENCOUNTER 2020-03-07 16:43 | Inpatient (IN) ==
[2020-03-07] MEDS ORDERED: Naloxone 0.4 MG/ML INJ IVP PRN (19:49)
[2020-03-07 20:28] LABS: Basophils % 0.6 %; Eosinophils % 0.4 %; Hematocrit 27.9 % (35.3-44.9); Hemoglobin 8.6 g/dL (11.5-15.4); Immature Granulocytes % 0.2 % (0-4); Lymphocytes # 0.9 K/mcL (0.6-4.6); Lymphocytes % 16.5 %; Mean Corpuscular HGB Conc 30.8 g/dL (31.6-35.5); Mean Corpuscular Hemoglobin 23.5 pg (28.0-33.3); Mean Corpuscular Volume 76.2 fL (83.0-100.0); Mean Platelet Volume 9.7 fL (9.4-12.4); Monocytes # 0.7 K/mcL (0.0-1.3); Monocytes % 12.6 %; Neutrophils # 3.6 K/mcL (1.6-8.9); Platelet Count 419 K/mcL (140-400); Red Blood Count 3.66 M/mcL (3.82-4.97); Red Cell Distribution Width 15.8 % (11.5-14.5); Segmented Neutrophils % 69.7 %; White Blood Count 5.2 K/mcL (4.3-11.1)
[2020-03-07 20:38] LABS: Prothrombin Time 11.7 Seconds (9.4-12.1)
[2020-03-07 20:48] LABS: Alanine Aminotransferase 26 Units/L (7-52); Albumin 4.3 g/dL (3.5-5.7); Albumin/Globulin Ratio 1.5 (1.1-2.2); Alkaline Phosphatase 165 Units/L (34-104); Aspartate Amino Transferase 29 Units/L (13-39); BUN/Creatinine Ratio 40 (6-26); Bilirubin,Total 0.4 mg/dL (0.3-1.0); Blood Urea Nitrogen 40 mg/dL (8-23); Calcium 8.9 mg/dL (8.6-10.3); Carbon Dioxide 35 mEq/L (23-29); Chloride 94 mEq/L (98-107); Globulin 2.8 g/dL (2.4-3.5); Glucose 107 mg/dL (70-105); Osmolality,Calculated 296 (280-300); Potassium 2.6 mEq/L (3.5-5.1); Sodium 138 mEq/L (136-145); Total Protein 7.1 g/dL (6.4-8.9); eGFR For African Americans > 60 (> 60); eGFR For Non-African Americans 54 (> 60)
[2020-03-07 21:25] LABS: Magnesium 3.1 mg/dL (1.6-2.6)
[2020-03-07] MEDS ORDERED: Pantoprazole 40 MG VIAL IVP ONE (21:29)
[2020-03-07] MEDS: Ondansetron 4 MG/2 ML VIAL IVP PRN (21:52)
[2020-03-07] MEDS ORDERED: Potassium Chloride 40 MEQ, Lidocaine 1% 2 ML in 0.9 % Sodium Chloride 500 ML IVPB ONE (22:00)
[2020-03-07 22:55] LABS: Estimated Average Glucose 111 mg/dl
[2020-03-07 23:03] LABS: % Iron Saturation 2 % (15-50); Iron 13 mcg/dL (50-170); Transferrin 436 mg/dL (203-362)
[2020-03-07 23:30] LABS: Folate > 22.3 ng/mL (3.0-16.0); Vitamin B12 615 pg/mL (250-1100)
[2020-03-07] MEDS ORDERED: Iron Sucrose Complex 400 MG in 0.9 % Sodium Chloride 250 ML IVPB ONE (23:42)
[2020-03-08 00:38] LABS: Basophils % 0.7 %; Eosinophils % 0.7 %; Hematocrit 28.9 % (35.3-44.9); Hemoglobin 8.8 g/dL (11.5-15.4); Immature Granulocytes % 0.2 % (0-4); Lymphocytes # 0.9 K/mcL (0.6-4.6); Lymphocytes % 16.2 %; Mean Corpuscular HGB Conc 30.4 g/dL (31.6-35.5); Mean Corpuscular Hemoglobin 23.7 pg (28.0-33.3); Mean Corpuscular Volume 77.7 fL (83.0-100.0); Mean Platelet Volume 9.8 fL (9.4-12.4); Monocytes # 0.8 K/mcL (0.0-1.3); Monocytes % 14.4 %; Neutrophils # 3.9 K/mcL (1.6-8.9); Platelet Count 428 K/mcL (140-400); Red Blood Count 3.72 M/mcL (3.82-4.97); Red Cell Distribution Width 15.6 % (11.5-14.5); Segmented Neutrophils % 67.8 %; White Blood Count 5.7 K/mcL (4.3-11.1)
[2020-03-08] MEDS: Ondansetron 4 MG/2 ML VIAL IVP PRN (04:42)
[2020-03-08 06:12] LABS: Alanine Aminotransferase 24 Units/L (7-52); Albumin 4.1 g/dL (3.5-5.7); Albumin/Globulin Ratio 1.6 (1.1-2.2); Alkaline Phosphatase 151 Units/L (34-104); Aspartate Amino Transferase 26 Units/L (13-39); BUN/Creatinine Ratio 33 (6-26); Bilirubin,Total 0.4 mg/dL (0.3-1.0); Blood Urea Nitrogen 35 mg/dL (8-23); Calcium 8.7 mg/dL (8.6-10.3); Carbon Dioxide 34 mEq/L (23-29); Chloride 98 mEq/L (98-107); Globulin 2.5 g/dL (2.4-3.5); Glucose 92 mg/dL (70-105); Osmolality,Calculated 300 (280-300); Potassium 2.7 mEq/L (3.5-5.1); Sodium 141 mEq/L (136-145); Total Protein 6.6 g/dL (6.4-8.9); eGFR For African Americans > 60 (> 60); eGFR For Non-African Americans 50 (> 60)
[2020-03-08] MEDS ORDERED: *HR* LORazepam 2 MG/ML VIAL IVP ONE (09:54)
[2020-03-08] MEDS ORDERED: Potassium Chloride 40 MEQ, Lidocaine 1% 2 ML in 0.9 % Sodium Chloride 500 ML IVPB ONE (09:56)
[2020-03-08] MEDS: Sennosides 8.6 MG TABLET PO SCH (16:43)
[2020-03-08] MEDS: Gabapentin 300 MG CAPSULE PO SCH ×2 (16:44→22:28)
[2020-03-08] MEDS: Melatonin 3 MG TABLET PO SCH (22:28)
[2020-03-09] MEDS ORDERED: *HR* FentaNYL (PF) 100 MCG/2 ML VIAL ONE (06:38)
[2020-03-09] MEDS ORDERED: Dexamethasone 4 MG/ML VIAL ONE (06:38)
[2020-03-09] MEDS ORDERED: *HR* Propofol 200 MG/20 ML VIAL IVP ONE (06:38)
[2020-03-09] MEDS ORDERED: Lidocaine -MPF 2% 2 ML VIAL ONE (06:38)
[2020-03-09] MEDS ORDERED: *HR* Succinylcholine 200 MG/10 ML VIAL IVP ONE (06:38)
[2020-03-09] MEDS ORDERED: Ondansetron 4 MG/2 ML VIAL ONE (06:38)
[2020-03-09] MEDS ORDERED: EPHEDrine 50 MG/ML VIAL ONE (07:24)
[2020-03-09 07:37] LABS: Hematocrit 26.6 % (35.3-44.9); Hemoglobin 7.8 g/dL (11.5-15.4); Immature Granulocytes % 0.2 % (0-4); Lymphocytes % 24.7 %; Mean Corpuscular HGB Conc 29.3 g/dL (31.6-35.5); Mean Corpuscular Hemoglobin 23.1 pg (28.0-33.3); Mean Corpuscular Volume 78.7 fL (83.0-100.0); Mean Platelet Volume 10.2 fL (9.4-12.4); Platelet Count 388 K/mcL (140-400); Red Blood Count 3.38 M/mcL (3.82-4.97); Red Cell Distribution Width 15.9 % (11.5-14.5); Segmented Neutrophils % 55.8 %; White Blood Count 5.6 K/mcL (4.3-11.1)
[2020-03-09 07:38] LABS: Basophils # 0.1 K/mcL (0.0-0.2); Basophils % 1.2 %; Eosinophils # 0.2 K/mcL (0.0-0.6); Eosinophils % 4.1 %; Lymphocytes # 1.4 K/mcL (0.6-4.6); Monocytes # 0.8 K/mcL (0.0-1.3); Neutrophils # 3.1 K/mcL (1.6-8.9)
[2020-03-09 08:00] LABS: Alanine Aminotransferase 19 Units/L (7-52); Albumin 3.7 g/dL (3.5-5.7); Albumin/Globulin Ratio 1.6 (1.1-2.2); Alkaline Phosphatase 130 Units/L (34-104); Aspartate Amino Transferase 24 Units/L (13-39); BUN/Creatinine Ratio 27 (6-26); Bilirubin,Total 0.3 mg/dL (0.3-1.0); Blood Urea Nitrogen 26 mg/dL (8-23); Calcium 8.7 mg/dL (8.6-10.3); Carbon Dioxide 33 mEq/L (23-29); Chloride 101 mEq/L (98-107); Globulin 2.3 g/dL (2.4-3.5); Glucose 82 mg/dL (70-105); Osmolality,Calculated 294 (280-300); Potassium 3.1 mEq/L (3.5-5.1); Sodium 140 mEq/L (136-145); eGFR For African Americans > 60 (> 60); eGFR For Non-African Americans 56 (> 60)
[2020-03-09] MEDS ORDERED: amLODIPine 5 MG TABLET PO SCH (09:00)
[2020-03-09] MEDS ORDERED: Indomethacin 50 MG SUPP.RECT RC ONE (09:12)
[2020-03-09] MEDS: Gabapentin 300 MG CAPSULE PO SCH ×3 (11:23→21:37)
[2020-03-09] MEDS: Sennosides 8.6 MG TABLET PO SCH (11:24)
[2020-03-09] MEDS: polyethylene glycoL 3350 17 GM POWD.PACK PO SCH (11:26)
[2020-03-09] MEDS ORDERED: Acetaminophen 325 MG TABLET PO PRN (12:09)
[2020-03-09] MEDS ORDERED: *HR* OxyCODONE/APAP 5/325 TABLET PO ONE (12:18)
[2020-03-09 12:44] LABS: Hematocrit 30.4 % (35.3-44.9)
[2020-03-09] MEDS: hydrOXYzine pamoate 25 MG CAPSULE PO PRN (21:30)
[2020-03-09] MEDS: Ondansetron 4 MG/2 ML VIAL IVP PRN (21:30)
[2020-03-09] MEDS: Melatonin 3 MG TABLET PO SCH (21:37)
[2020-03-10 06:53] LABS: Basophils % 0.1 %; Eosinophils % 0.1 %; Hematocrit 25.7 % (35.3-44.9); Hemoglobin 7.9 g/dL (11.5-15.4); Immature Granulocytes % 0.4 % (0-4); Lymphocytes # 0.4 K/mcL (0.6-4.6); Lymphocytes % 2.7 %; Mean Corpuscular HGB Conc 30.7 g/dL (31.6-35.5); Mean Corpuscular Hemoglobin 23.8 pg (28.0-33.3); Mean Corpuscular Volume 77.4 fL (83.0-100.0); Mean Platelet Volume 9.9 fL (9.4-12.4); Monocytes # 0.8 K/mcL (0.0-1.3); Monocytes % 5.6 %; Neutrophils # 13.6 K/mcL (1.6-8.9); Nucleated Red Blood Cells 0.2 /100 WBC (0); Platelet Count 375 K/mcL (140-400); Red Blood Count 3.32 M/mcL (3.82-4.97); Red Cell Distribution Width 15.9 % (11.5-14.5); Segmented Neutrophils % 91.1 %
[2020-03-10 06:54] LABS: White Blood Count 14.9 K/mcL (4.3-11.1)
[2020-03-10 07:17] LABS: Alanine Aminotransferase 23 Units/L (7-52); Albumin 3.5 g/dL (3.5-5.7); Albumin/Globulin Ratio 1.6 (1.1-2.2); Alkaline Phosphatase 120 Units/L (34-104); Aspartate Amino Transferase 29 Units/L (13-39); BUN/Creatinine Ratio 23 (6-26); Bilirubin,Total 0.4 mg/dL (0.3-1.0); Blood Urea Nitrogen 23 mg/dL (8-23); Calcium 8.5 mg/dL (8.6-10.3); Carbon Dioxide 31 mEq/L (23-29); Chloride 101 mEq/L (98-107); Globulin 2.2 g/dL (2.4-3.5); Glucose 124 mg/dL (70-105); Osmolality,Calculated 291 (280-300); Potassium 3.5 mEq/L (3.5-5.1); Sodium 138 mEq/L (136-145); Total Protein 5.7 g/dL (6.4-8.9); eGFR For African Americans > 60 (> 60); eGFR For Non-African Americans 54 (> 60)
[2020-03-10] MEDS ORDERED: 0.9 % Sodium Chloride 1,000 ML IVC ONE ×4 (07:58→16:59)
[2020-03-10] MEDS ORDERED: 0.9 % Sodium Chloride 1,000 ML IVC SCH (08:00)
[2020-03-10] MEDS: Piperacillin/Tazobactam 3.375 GM in 0.9 % Sodium Chloride Mini Bag 100 ML IVPB SCH ×2 (09:18→16:00)
[2020-03-10] MEDS: Sennosides 8.6 MG TABLET PO SCH (09:23)
[2020-03-10] MEDS: Gabapentin 300 MG CAPSULE PO SCH ×3 (09:23→21:56)
[2020-03-10 12:39] LABS: Basophils % 0.2 %; Eosinophils % 0.1 %; Hematocrit 26.4 % (35.3-44.9); Hemoglobin 7.7 g/dL (11.5-15.4); Immature Granulocytes % 0.5 % (0-4); Lymphocytes # 0.8 K/mcL (0.6-4.6); Lymphocytes % 4.3 %; Mean Corpuscular HGB Conc 29.2 g/dL (31.6-35.5); Mean Corpuscular Hemoglobin 22.9 pg (28.0-33.3); Mean Corpuscular Volume 78.6 fL (83.0-100.0); Mean Platelet Volume 10.3 fL (9.4-12.4); Monocytes # 0.8 K/mcL (0.0-1.3); Monocytes % 4.7 %; Neutrophils # 16.2 K/mcL (1.6-8.9); Nucleated Red Blood Cells 0.1 /100 WBC (0); Platelet Count 378 K/mcL (140-400); Red Blood Count 3.36 M/mcL (3.82-4.97); Red Cell Distribution Width 16.2 % (11.5-14.5); Segmented Neutrophils % 90.2 %
[2020-03-10] MEDS ORDERED: Acetaminophen IV 1,000 MG/100 ML INFUS..BTL IVPB ONE (21:43)
[2020-03-10] MEDS: Melatonin 3 MG TABLET PO SCH (21:56)
[2020-03-10 22:57] LABS: Bilirubin,Urine Negative (Negative); Blood,Urine Negative (Negative); Clarity,Urine Clear (Clear); Color,Urine Yellow (Yellow); Glucose,Urine (UA) Normal (Normal); Ketones,Urine Negative (Negative); Leukocyte Esterase,Urine Negative (Negative); Nitrite,Urine Negative (Negative); PH,Urine 5.5 pH Units (5.0-8.0); Protein,Urine Trace mg/dL (Neg-Trace); Specific Gravity,Urine 1.021 (1.010-1.025); Urobilinogen,Urine Normal (Normal)
[2020-03-11] MEDS: Piperacillin/Tazobactam 3.375 GM in 0.9 % Sodium Chloride Mini Bag 100 ML IVPB SCH ×3 (00:22→15:25)
[2020-03-11] MEDS ORDERED: 0.9 % Sodium Chloride 250 ML IVC ONE (03:45)
[2020-03-11] MEDS ORDERED: 0.9 % Sodium Chloride 250 ML ONE (03:51)
[2020-03-11] MEDS: Sennosides 8.6 MG TABLET PO SCH ×2 (07:53→21:10)
[2020-03-11] MEDS: Gabapentin 300 MG CAPSULE PO SCH ×3 (07:53→21:11)
[2020-03-11 08:04] LABS: Albumin 2.9 g/dL (3.5-5.7); Albumin/Globulin Ratio 1.5 (1.1-2.2); Bilirubin,Total 0.5 mg/dL (0.3-1.0); Calcium 7.5 mg/dL (8.6-10.3); Potassium 3.6 mEq/L (3.5-5.1); Total Protein 4.9 g/dL (6.4-8.9)
[2020-03-11 08:09] LABS: Mean Corpuscular HGB Conc 29.2 g/dL (31.6-35.5); Mean Corpuscular Hemoglobin 23.1 pg (28.0-33.3); Mean Corpuscular Volume 79.2 fL (83.0-100.0); Mean Platelet Volume 11.2 fL (9.4-12.4); Nucleated Red Blood Cells 0.1 /100 WBC (0); Platelet Count 290 K/mcL (140-400); Red Blood Count 3.03 M/mcL (3.82-4.97); Red Cell Distribution Width 16.2 % (11.5-14.5); White Blood Count 16.7 K/mcL (4.3-11.1)
[2020-03-11 08:57] LABS: Anisocytosis 1+ (Not Present); Eosinophils # 0.3 K/mcL (0.0-0.6); Hypochromasia Present (Not Present); Lymphocytes # 1.3 K/mcL (0.6-4.6); Monocytes # 0.7 K/mcL (0.0-1.3); Neutrophils # 14.4 K/mcL (1.6-8.9); Platelet Estimate Normal (Normal)
[2020-03-11] MEDS ORDERED: Isovue-370 500 ML BOTTLE IVP ONE (10:34)
[2020-03-11] MEDS ORDERED: Bisacodyl 10 MG RECTAL SUPPOSITORY RC ONE (13:48)
[2020-03-11 14:18] LABS: Hematocrit 27.9 % (35.3-44.9)
[2020-03-11] MEDS: hydrOXYzine pamoate 25 MG CAPSULE PO PRN (15:24)
[2020-03-11] MEDS: Pantoprazole 40 MG VIAL IVP SCH (18:58)
[2020-03-11 19:28] LABS: Amphetamine Screen,Urine Negative ng/mL (Cutoff=1000); Barbiturate Screen,Urine Negative ng/mL (Cutoff=200); Benzodiazepines Screen,Urine Negative ng/mL (Cutoff=200); Cannabinoid Screen,Urine Negative ng/mL (Cutoff = 50); Cocaine Screen,Urine Negative ng/mL (Cutoff= 300); Opiate Screen,Urine Negative ng/mL (Cutoff=300); Phencyclidine Screen,Urine Negative ng/mL (Cutoff=25)
[2020-03-11] MEDS: Melatonin 3 MG TABLET PO SCH (21:11)
[2020-03-12 02:01] LABS: Basophils % 0.3 %; Eosinophils # 0.3 K/mcL (0.0-0.6); Eosinophils % 1.7 %; Hemoglobin 6.8 g/dL (11.5-15.4); Immature Granulocytes % 3.3 % (0-4); Lymphocytes # 0.7 K/mcL (0.6-4.6); Lymphocytes % 4.7 %; Mean Corpuscular HGB Conc 29.6 g/dL (31.6-35.5); Mean Corpuscular Volume 77.7 fL (83.0-100.0); Mean Platelet Volume 10.4 fL (9.4-12.4); Monocytes # 0.9 K/mcL (0.0-1.3); Monocytes % 5.6 %; Neutrophils # 13.2 K/mcL (1.6-8.9); Platelet Count 325 K/mcL (140-400); Red Blood Count 2.96 M/mcL (3.82-4.97); Red Cell Distribution Width 16.8 % (11.5-14.5); Segmented Neutrophils % 84.4 %; White Blood Count 15.6 K/mcL (4.3-11.1)
[2020-03-12 02:06] LABS: Basophils # 0.1 K/mcL (0.0-0.2)
[2020-03-12 02:24] LABS: BUN/Creatinine Ratio 24 (6-26); Blood Urea Nitrogen 23 mg/dL (8-23); Calcium 7.9 mg/dL (8.6-10.3); Carbon Dioxide 21 mEq/L (23-29); Chloride 107 mEq/L (98-107); Glucose 99 mg/dL (70-105); Magnesium 1.8 mg/dL (1.6-2.6); Osmolality,Calculated 290 (280-300); Potassium 3.2 mEq/L (3.5-5.1); Sodium 138 mEq/L (136-145); eGFR For African Americans > 60 (> 60); eGFR For Non-African Americans 56 (> 60)
[2020-03-12 02:26] LABS: Platelet Estimate Normal (Normal)
[2020-03-12 02:27] LABS: Anisocytosis 1+ (Not Present)
[2020-03-12 02:28] LABS: Large Platelets Present (Not Present); Reactive Lymphocytes Present (Not Present)
[2020-03-12] MEDS: Piperacillin/Tazobactam 3.375 GM in 0.9 % Sodium Chloride Mini Bag 100 ML IVPB SCH ×3 (03:05→15:41)
[2020-03-12] MEDS: Vancomycin 1,250 MG/262.5 ML IV.SOLN IVPB SCH (03:06)
[2020-03-12] MEDS ORDERED: Acetaminophen IV 1,000 MG/100 ML INFUS..BTL IVPB ONE (04:35)
[2020-03-12] MEDS: hydrOXYzine pamoate 25 MG CAPSULE PO PRN (05:11)
[2020-03-12] MEDS: Pantoprazole 40 MG VIAL IVP SCH ×2 (05:24→17:42)
[2020-03-12] MEDS ORDERED: 0.9 % Sodium Chloride 250 ML IVC SCH (07:45)
[2020-03-12] MEDS ORDERED: Potassium Chloride 40 MEQ, Lidocaine 1% 2 ML in 0.9 % Sodium Chloride 500 ML IVPB ONE (07:47)
[2020-03-12] MEDS ORDERED: 0.9 % Sodium Chloride 1,000 ML IVC SCH (08:00)
[2020-03-12] MEDS: polyethylene glycoL 3350 17 GM POWD.PACK PO SCH (08:57)
[2020-03-12] MEDS: Gabapentin 300 MG CAPSULE PO SCH ×3 (08:59→20:40)
[2020-03-12] MEDS: Sennosides 8.6 MG TABLET PO SCH ×2 (08:59→20:39)
[2020-03-12] MEDS: Acetaminophen 325 MG TABLET PO PRN (12:29)
[2020-03-12] MEDS ORDERED: Ibuprofen 400 MG TABLET PO ONE (13:42)
[2020-03-12 16:28] LABS: Hematocrit 27.6 % (35.3-44.9); Hemoglobin 8.4 g/dL (11.5-15.4)
[2020-03-12] MEDS ORDERED: SODIUM CHLORIDE/NAHCO3/KCL/PEG 4,000 ML SOLN.RECON PO ONE (17:00)
[2020-03-12] MEDS: Melatonin 3 MG TABLET PO SCH (20:40)
[2020-03-13 01:08] LABS: Basophils % 0.3 %; Eosinophils # 0.4 K/mcL (0.0-0.6); Eosinophils % 2.6 %; Hematocrit 26.7 % (35.3-44.9); Hemoglobin 7.9 g/dL (11.5-15.4); Immature Granulocytes % 1.1 % (0-4); Lymphocytes # 0.6 K/mcL (0.6-4.6); Mean Corpuscular HGB Conc 29.6 g/dL (31.6-35.5); Mean Corpuscular Hemoglobin 23.9 pg (28.0-33.3); Mean Corpuscular Volume 80.9 fL (83.0-100.0); Mean Platelet Volume 10.4 fL (9.4-12.4); Monocytes # 0.9 K/mcL (0.0-1.3); Platelet Count 312 K/mcL (140-400); Red Cell Distribution Width 17.2 % (11.5-14.5); White Blood Count 14.6 K/mcL (4.3-11.1)
[2020-03-13 01:14] LABS: Neutrophils # 12.6 K/mcL (1.6-8.9)
[2020-03-13 01:28] LABS: BUN/Creatinine Ratio 22 (6-26); Blood Urea Nitrogen 20 mg/dL (8-23); Carbon Dioxide 20 mEq/L (23-29); Chloride 112 mEq/L (98-107); Glucose 79 mg/dL (70-105); Osmolality,Calculated 296 (280-300); Potassium 3.5 mEq/L (3.5-5.1); Sodium 142 mEq/L (136-145); eGFR For African Americans > 60 (> 60); eGFR For Non-African Americans > 60 (> 60)
[2020-03-13] MEDS: Piperacillin/Tazobactam 3.375 GM in 0.9 % Sodium Chloride Mini Bag 100 ML IVPB SCH ×4 (01:34→23:43)
[2020-03-13 01:42] LABS: Anisocytosis 1+ (Not Present); Hypochromasia Present (Not Present); Large Platelets Present (Not Present); Platelet Estimate Normal (Normal)
[2020-03-13] MEDS: Vancomycin 1,250 MG/262.5 ML IV.SOLN IVPB SCH (03:14)
[2020-03-13] MEDS: Pantoprazole 40 MG VIAL IVP SCH ×2 (06:38→17:34)
[2020-03-13] MEDS: Sennosides 8.6 MG TABLET PO SCH ×2 (07:29→20:31)
[2020-03-13] MEDS: polyethylene glycoL 3350 17 GM POWD.PACK PO SCH (07:29)
[2020-03-13] MEDS: Gabapentin 300 MG CAPSULE PO SCH ×3 (07:29→20:32)
[2020-03-13] MEDS: Acetaminophen 325 MG TABLET PO PRN ×2 (10:25→20:31)
[2020-03-13] MEDS: Ringers Solution, Lactated 1,000 ML IVC SCH (10:50)
[2020-03-13 12:14] LABS: Hematocrit 30.8 % (35.3-44.9)
[2020-03-13] MEDS: Melatonin 3 MG TABLET PO SCH (20:31)
[2020-03-14 02:27] LABS: Basophils % 0.3 %; Eosinophils # 0.3 K/mcL (0.0-0.6); Eosinophils % 2.1 %; Hematocrit 26.2 % (35.3-44.9); Hemoglobin 7.8 g/dL (11.5-15.4); Immature Granulocytes % 0.6 % (0-4); Lymphocytes # 0.9 K/mcL (0.6-4.6); Lymphocytes % 5.7 %; Mean Corpuscular HGB Conc 29.8 g/dL (31.6-35.5); Mean Corpuscular Hemoglobin 23.9 pg (28.0-33.3); Mean Corpuscular Volume 80.4 fL (83.0-100.0); Mean Platelet Volume 9.9 fL (9.4-12.4); Monocytes # 1.2 K/mcL (0.0-1.3); Neutrophils # 12.6 K/mcL (1.6-8.9); Platelet Count 314 K/mcL (140-400); Red Blood Count 3.26 M/mcL (3.82-4.97); Red Cell Distribution Width 17.6 % (11.5-14.5); Segmented Neutrophils % 83.3 %; White Blood Count 15.1 K/mcL (4.3-11.1)
[2020-03-14 02:49] LABS: BUN/Creatinine Ratio 16 (6-26); Blood Urea Nitrogen 12 mg/dL (8-23); Calcium 7.9 mg/dL (8.6-10.3); Carbon Dioxide 16 mEq/L (23-29); Chloride 113 mEq/L (98-107); Glucose 68 mg/dL (70-105); Magnesium 1.8 mg/dL (1.6-2.6); Osmolality,Calculated 296 (280-300); Potassium 3.4 mEq/L (3.5-5.1); Sodium 144 mEq/L (136-145); eGFR For African Americans > 60 (> 60); eGFR For Non-African Americans > 60 (> 60)
[2020-03-14] MEDS: Vancomycin 1,250 MG/262.5 ML IV.SOLN IVPB SCH (03:00)
[2020-03-14] MEDS ORDERED: Vancomycin 1,500 MG/265 ML IV.SOLN IVPB SCH (03:00)
[2020-03-14] MEDS: Acetaminophen 325 MG TABLET PO PRN ×2 (03:47→13:21)
[2020-03-14] MEDS: Pantoprazole 40 MG VIAL IVP SCH ×2 (05:36→17:45)
[2020-03-14] MEDS: Ringers Solution, Lactated 1,000 ML IVC SCH (05:37)
[2020-03-14] MEDS: Gabapentin 300 MG CAPSULE PO SCH ×3 (07:15→21:51)
[2020-03-14] MEDS: Sennosides 8.6 MG TABLET PO SCH ×2 (07:15→21:51)
[2020-03-14] MEDS: polyethylene glycoL 3350 17 GM POWD.PACK PO SCH (07:15)
[2020-03-14] MEDS: Piperacillin/Tazobactam 3.375 GM in 0.9 % Sodium Chloride Mini Bag 100 ML IVPB SCH ×3 (07:15→23:44)
[2020-03-14] MEDS ORDERED: Aminoglycoside Consult 1 EACH MC ONE (09:44)
[2020-03-14] MEDS ORDERED: Ringers Solution, Lactated 1,000 ML IVC SCH (12:03)
[2020-03-14] MEDS: D5% in 0.45% NACL w KCl 20 MEQ/1,000 ML MLS IVC SCH (16:50)
[2020-03-14] MEDS: Melatonin 3 MG TABLET PO SCH (21:52)
[2020-03-15] MEDS: D5% in 0.45% NACL w KCl 20 MEQ/1,000 ML MLS IVC SCH ×2 (02:45→13:38)
[2020-03-15] MEDS: Pantoprazole 40 MG VIAL IVP SCH ×2 (05:07→17:33)
[2020-03-15] MEDS: Acetaminophen 325 MG TABLET PO PRN ×2 (06:09→21:04)
[2020-03-15 06:28] LABS: Eosinophils % 1.9 %; Immature Granulocytes % 1.6 % (0-4); Monocytes % 8.8 %
[2020-03-15 06:29] LABS: Basophils # 0.1 K/mcL (0.0-0.2); Basophils % 0.6 %; Eosinophils # 0.3 K/mcL (0.0-0.6); Hematocrit 31.5 % (35.3-44.9); Lymphocytes # 0.9 K/mcL (0.6-4.6); Mean Corpuscular HGB Conc 28.6 g/dL (31.6-35.5); Mean Corpuscular Hemoglobin 23.6 pg (28.0-33.3); Mean Corpuscular Volume 82.7 fL (83.0-100.0); Mean Platelet Volume 10.7 fL (9.4-12.4); Monocytes # 1.3 K/mcL (0.0-1.3); Neutrophils # 11.8 K/mcL (1.6-8.9); Platelet Count 344 K/mcL (140-400); Red Blood Count 3.81 M/mcL (3.82-4.97); Red Cell Distribution Width 18.1 % (11.5-14.5); Segmented Neutrophils % 81.1 %; White Blood Count 14.5 K/mcL (4.3-11.1)
[2020-03-15 06:49] LABS: BUN/Creatinine Ratio 10 (6-26); Blood Urea Nitrogen 7 mg/dL (8-23); Calcium 8.1 mg/dL (8.6-10.3); Carbon Dioxide 20 mEq/L (23-29); Chloride 114 mEq/L (98-107); Glucose 154 mg/dL (70-105); Osmolality,Calculated 295 (280-300); Potassium 3.9 mEq/L (3.5-5.1); Sodium 142 mEq/L (136-145); eGFR For African Americans > 60 (> 60); eGFR For Non-African Americans > 60 (> 60)
[2020-03-15 07:26] LABS: Hypochromasia Present (Not Present); Platelet Estimate Normal (Normal)
[2020-03-15] MEDS: Piperacillin/Tazobactam 3.375 GM in 0.9 % Sodium Chloride Mini Bag 100 ML IVPB SCH ×2 (08:30→14:59)
[2020-03-15] MEDS: Gabapentin 300 MG CAPSULE PO SCH ×3 (08:30→21:05)
[2020-03-15] MEDS: Sennosides 8.6 MG TABLET PO SCH ×2 (08:31→21:04)
[2020-03-15] MEDS: polyethylene glycoL 3350 17 GM POWD.PACK PO SCH (08:31)
[2020-03-15] MEDS: Melatonin 3 MG TABLET PO SCH (21:05)
[2020-03-15] MEDS: Ondansetron 4 MG/2 ML VIAL IVP PRN (21:13)
[2020-03-15] MEDS: hydrOXYzine pamoate 25 MG CAPSULE PO PRN (21:13)
[2020-03-16] MEDS: Piperacillin/Tazobactam 3.375 GM in 0.9 % Sodium Chloride Mini Bag 100 ML IVPB SCH ×3 (00:25→15:38)
[2020-03-16 02:42] LABS: Basophils # 0.1 K/mcL (0.0-0.2); Basophils % 0.5 %; Eosinophils # 0.3 K/mcL (0.0-0.6); Eosinophils % 2.6 %; Hematocrit 27.1 % (35.3-44.9); Hemoglobin 8.2 g/dL (11.5-15.4); Lymphocytes # 1.4 K/mcL (0.6-4.6); Lymphocytes % 11.1 %; Mean Corpuscular HGB Conc 30.3 g/dL (31.6-35.5); Mean Corpuscular Hemoglobin 24.3 pg (28.0-33.3); Mean Corpuscular Volume 80.4 fL (83.0-100.0); Mean Platelet Volume 10.2 fL (9.4-12.4); Monocytes # 1.5 K/mcL (0.0-1.3); Monocytes % 12.3 %; Neutrophils # 8.7 K/mcL (1.6-8.9); Platelet Count 311 K/mcL (140-400); Red Blood Count 3.37 M/mcL (3.82-4.97); Segmented Neutrophils % 71.5 %; White Blood Count 12.2 K/mcL (4.3-11.1)
[2020-03-16 02:49] LABS: BUN/Creatinine Ratio 7 (6-26); Blood Urea Nitrogen 4 mg/dL (8-23); Calcium 7.7 mg/dL (8.6-10.3); Carbon Dioxide 21 mEq/L (23-29); Chloride 113 mEq/L (98-107); Glucose 108 mg/dL (70-105); Osmolality,Calculated 287 (280-300); Potassium 3.7 mEq/L (3.5-5.1); Sodium 140 mEq/L (136-145); eGFR For African Americans > 60 (> 60); eGFR For Non-African Americans > 60 (> 60)
[2020-03-16] MEDS: Acetaminophen 325 MG TABLET PO PRN ×2 (03:29→21:03)
[2020-03-16] MEDS: Pantoprazole 40 MG VIAL IVP SCH ×2 (05:28→18:01)
[2020-03-16] MEDS: polyethylene glycoL 3350 17 GM POWD.PACK PO SCH (08:33)
[2020-03-16] MEDS: Gabapentin 300 MG CAPSULE PO SCH ×3 (08:33→21:04)
[2020-03-16] MEDS: Sennosides 8.6 MG TABLET PO SCH ×2 (08:37→21:04)
[2020-03-16] MEDS: D5% in 0.45% NACL w KCl 20 MEQ/1,000 ML MLS IVC SCH (12:06)
[2020-03-16] MEDS: Melatonin 3 MG TABLET PO SCH (21:03)
[2020-03-17] MEDS: Piperacillin/Tazobactam 3.375 GM in 0.9 % Sodium Chloride Mini Bag 100 ML IVPB SCH ×2 (00:33→09:56)
[2020-03-17] MEDS: Acetaminophen 325 MG TABLET PO PRN (04:07)
[2020-03-17] MEDS: Pantoprazole 40 MG VIAL IVP SCH (06:00)
[2020-03-17 06:49] VITALS: BP 104/65
[2020-03-17 08:31] LABS: Basophils # 0.1 K/mcL (0.0-0.2); Basophils % 0.5 %; Eosinophils # 0.2 K/mcL (0.0-0.6); Eosinophils % 1.9 %; Hematocrit 28.8 % (35.3-44.9); Hemoglobin 8.5 g/dL (11.5-15.4); Immature Granulocytes % 1.6 % (0-4); Lymphocytes # 1.2 K/mcL (0.6-4.6); Lymphocytes % 10.2 %; Mean Corpuscular HGB Conc 29.5 g/dL (31.6-35.5); Mean Corpuscular Hemoglobin 23.6 pg (28.0-33.3); Mean Platelet Volume 10.4 fL (9.4-12.4); Monocytes # 0.8 K/mcL (0.0-1.3); Monocytes % 7.4 %; Neutrophils # 8.8 K/mcL (1.6-8.9); Platelet Count 310 K/mcL (140-400); Red Cell Distribution Width 18.6 % (11.5-14.5); Segmented Neutrophils % 78.4 %; White Blood Count 11.2 K/mcL (4.3-11.1)
[2020-03-17 08:44] LABS: BUN/Creatinine Ratio 6 (6-26); Blood Urea Nitrogen 4 mg/dL (8-23); Calcium 7.8 mg/dL (8.6-10.3); Carbon Dioxide 20 mEq/L (23-29); Chloride 114 mEq/L (98-107); Glucose 92 mg/dL (70-105); Osmolality,Calculated 287 (280-300); Potassium 4.1 mEq/L (3.5-5.1); Sodium 140 mEq/L (136-145); eGFR For African Americans > 60 (> 60); eGFR For Non-African Americans > 60 (> 60)
[2020-03-17] MEDS: D5% in 0.45% NACL w KCl 20 MEQ/1,000 ML MLS IVC SCH (09:56)
[2020-03-17] MEDS: Gabapentin 300 MG CAPSULE PO SCH (09:57)
[2020-03-17] MEDS: Sennosides 8.6 MG TABLET PO SCH (09:57)
[2020-03-17] MEDS: polyethylene glycoL 3350 17 GM POWD.PACK PO SCH (09:57)
== END 2020-03-17 10:51 | disposition left against medical advice (07) | DRG 381 ==
LOC: 3ANU → SUATTDRO 19:34
PROVIDERS: ADMIT Internal Medicine; ATTEND Internal Medicine
PROC: ENDOORB (2020-03-09 08:00)

== ENCOUNTER 2022-04-30 20:46 | Observation (INO) ==
[2022-05-01] MEDS ORDERED: Acetaminophen 325 MG TABLET PO PRN (02:48)
[2022-05-01] MEDS ORDERED: Naloxone 0.4 MG/ML INJ IVP PRN (02:48)
[2022-05-01] MEDS ORDERED: Melatonin 3 MG TABLET PO PRN (02:48)
[2022-05-01] MEDS ORDERED: Ondansetron 4 MG/2 ML VIAL IVP PRN (02:48)
[2022-05-01] MEDS ORDERED: Dextrose Gel 15 GM/37.5 ML TUBE PO PRN ×2 (02:52)
[2022-05-01] MEDS ORDERED: D5% in Water 1,000 ML IVC PRN (02:52)
[2022-05-01] MEDS ORDERED: *HR* Dextrose 50 % in Water (Syg) 50 ML SYRINGE IVP PRN (02:52)
[2022-05-01 04:07] LABS: Basophils # 0.1 K/mcL (0.0-0.2); Basophils % 0.7 %; Eosinophils # 0.3 K/mcL (0.0-0.6); Eosinophils % 3.5 %; Hematocrit 24.7 % (35.3-44.9); Hemoglobin 7.3 g/dL (11.5-15.4); Immature Granulocytes % 0.3 % (0-4); Lymphocytes # 1.1 K/mcL (0.6-4.6); Lymphocytes % 14.2 %; Mean Corpuscular HGB Conc 29.6 g/dL (31.6-35.5); Mean Corpuscular Hemoglobin 22.3 pg (28.0-33.3); Mean Corpuscular Volume 75.5 fL (83.0-100.0); Mean Platelet Volume 10.2 fL (9.4-12.4); Monocytes # 0.7 K/mcL (0.0-1.3); Monocytes % 9.8 %; Neutrophils # 5.3 K/mcL (1.6-8.9); Nucleated Red Blood Cells 0.3 /100 WBC (0); Platelet Count 392 K/mcL (140-400); Red Blood Count 3.27 M/mcL (3.82-4.97); Red Cell Distribution Width 19.3 % (11.5-14.5); Segmented Neutrophils % 71.5 %; White Blood Count 7.5 K/mcL (4.3-11.1)
[2022-05-01 04:12] LABS: Immature Reticulocyte % 11.3 % (11.0-38.0); Retculocyte # 0.06 M/mcL (0.05-0.10); Reticulocyte % 1.8 % (1.6-2.8)
[2022-05-01 04:19] LABS: Prothrombin Time 11.2 Seconds (9.4-12.1)
[2022-05-01] MEDS ORDERED: Perflutren Lipid Microsphere 1.3 ML in 0.9 % Sodium Chloride 8.7 ML IVP PRN (04:21)
[2022-05-01 04:22] LABS: Activated Partial Thrombo Time 27.5 Seconds (26.0-36.0)
[2022-05-01 04:29] LABS: Alanine Aminotransferase 9 Units/L (7-52); Albumin 3.6 g/dL (3.5-5.7); Albumin/Globulin Ratio 1.6 (1.1-2.2); Alkaline Phosphatase 141 Units/L (34-104); Aspartate Amino Transferase 14 Units/L (13-39); BUN/Creatinine Ratio 19 (6-26); Bilirubin,Total 0.4 mg/dL (0.3-1.0); Blood Urea Nitrogen 13 mg/dL (8-23); Carbon Dioxide 25 mEq/L (23-29); Chloride 112 mEq/L (98-107); Chol/HDL Ratio 2.3 (0-4.9); Cholesterol 124 mg/dL (< 200); Globulin 2.2 g/dL (2.4-3.5); Glucose 88 mg/dL (70-105); HDL Cholesterol 53 mg/dL (40-59); LDL Cholesterol,Calculated 54 mg/dL (< 100); Lactate Dehydrogenase 157 Units/L (140-271); Magnesium 2.3 mg/dL (1.6-2.6); Osmolality,Calculated 298 (280-300); Phosphorous 2.9 mg/dL (2.7-4.5); Potassium 3.6 mEq/L (3.5-5.1); Sodium 144 mEq/L (136-145); Total Protein 5.8 g/dL (6.4-8.9); Triglycerides 83 mg/dL (< 150); eGFR For African Americans > 60 (> 60); eGFR For Non-African Americans > 60 (> 60)
[2022-05-01] MEDS ORDERED: Ipratropium/Albuterol Neb 3 ML IH PRN (05:24)
[2022-05-01] MEDS: Pantoprazole 40 MG VIAL IVP SCH ×2 (06:52→17:51)
[2022-05-01] MEDS: Calcium Gluconate 1gm/50mL 1 GM/50 ML BAG IVPB SCH ×2 (06:57→08:08)
[2022-05-01 09:45] LABS: % Iron Saturation 2 % (15-50); Iron 13 mcg/dL (50-170); Transferrin 377 mg/dL (203-362)
[2022-05-01 09:58] LABS: Ferritin 9 ng/mL (10-120)
[2022-05-01 10:39] LABS: Estimated Average Glucose 108 mg/dl; Hemoglobin A1C 5.4 %
[2022-05-01 10:52] LABS: Folate 16.3 ng/mL (3.0-16.0)
[2022-05-01] MEDS ORDERED: Cyanocobalamin (B-12) 1,000 MCG/ML VIAL SQ ONE (14:24)
[2022-05-01 15:32] LABS: Hematocrit 23.9 % (35.3-44.9); Hemoglobin 6.8 g/dL (11.5-15.4)
[2022-05-01] MEDS ORDERED: SODIUM CHLORIDE/NAHCO3/KCL/PEG 4,000 ML SOLN.RECON PO ONE (17:00)
[2022-05-02] MEDS: Pantoprazole 40 MG VIAL IVP SCH ×2 (06:08→17:50)
[2022-05-02 07:03] LABS: BUN/Creatinine Ratio 17 (6-26); Blood Urea Nitrogen 13 mg/dL (8-23); Calcium 7.9 mg/dL (8.6-10.3); Carbon Dioxide 24 mEq/L (23-29); Chloride 111 mEq/L (98-107); Glucose 89 mg/dL (70-105); Magnesium 2.1 mg/dL (1.6-2.6); Osmolality,Calculated 292 (280-300); Phosphorous 2.6 mg/dL (2.7-4.5); Potassium 4.3 mEq/L (3.5-5.1); Sodium 141 mEq/L (136-145); eGFR For African Americans > 60 (> 60); eGFR For Non-African Americans > 60 (> 60)
[2022-05-02] MEDS ORDERED: *HR* Propofol 200 MG/20 ML VIAL IVP ONE (08:45)
[2022-05-02] MEDS ORDERED: Lidocaine -MPF 2% 5 ML VIAL ONE (08:45)
[2022-05-02 08:54] LABS: Basophils # 0.1 K/mcL (0.0-0.2); Basophils % 0.6 %; Eosinophils # 0.4 K/mcL (0.0-0.6); Eosinophils % 4.6 %; Hematocrit 24.1 % (35.3-44.9); Immature Granulocytes % 0.4 % (0-4); Lymphocytes % 11.1 %; Mean Corpuscular Hemoglobin 22.2 pg (28.0-33.3); Mean Corpuscular Volume 76.3 fL (83.0-100.0); Mean Platelet Volume 10.5 fL (9.4-12.4); Monocytes # 0.9 K/mcL (0.0-1.3); Monocytes % 9.3 %; Neutrophils # 6.9 K/mcL (1.6-8.9); Platelet Count 382 K/mcL (140-400); Red Blood Count 3.16 M/mcL (3.82-4.97); Red Cell Distribution Width 19.4 % (11.5-14.5); White Blood Count 9.3 K/mcL (4.3-11.1)
[2022-05-02] MEDS ORDERED: Iron Sucrose Complex 400 MG in 0.9 % Sodium Chloride 250 ML IVPB ONE (10:00)
[2022-05-02 15:17] LABS: Hematocrit 24.1 % (35.3-44.9); Hemoglobin 6.8 g/dL (11.5-15.4)
[2022-05-02] MEDS ORDERED: 0.9 % Sodium Chloride 250 ML IVC SCH (15:45)
[2022-05-02] MEDS ORDERED: 0.9 % Sodium Chloride 250 ML ONE (17:10)
[2022-05-02] MEDS: Gabapentin 300 MG CAPSULE PO SCH (21:52)
[2022-05-03] MEDS: Pantoprazole 40 MG VIAL IVP SCH (06:02)
[2022-05-03 06:19] LABS: Basophils # 0.1 K/mcL (0.0-0.2); Basophils % 1.1 %; Eosinophils # 0.3 K/mcL (0.0-0.6); Eosinophils % 5.2 %; Hematocrit 27.9 % (35.3-44.9); Hemoglobin 8.2 g/dL (11.5-15.4); Immature Granulocytes % 0.6 % (0-4); Lymphocytes # 0.7 K/mcL (0.6-4.6); Lymphocytes % 10.4 %; Mean Corpuscular HGB Conc 29.4 g/dL (31.6-35.5); Mean Corpuscular Volume 78.4 fL (83.0-100.0); Mean Platelet Volume 10.3 fL (9.4-12.4); Monocytes # 0.6 K/mcL (0.0-1.3); Monocytes % 9.8 %; Neutrophils # 4.8 K/mcL (1.6-8.9); Nucleated Red Blood Cells 0.5 /100 WBC (0); Platelet Count 341 K/mcL (140-400); Red Blood Count 3.56 M/mcL (3.82-4.97); Red Cell Distribution Width 19.7 % (11.5-14.5); Segmented Neutrophils % 72.9 %; White Blood Count 6.6 K/mcL (4.3-11.1)
[2022-05-03 06:38] LABS: BUN/Creatinine Ratio 11 (6-26); Blood Urea Nitrogen 8 mg/dL (8-23); Calcium 8.1 mg/dL (8.6-10.3); Carbon Dioxide 26 mEq/L (23-29); Chloride 109 mEq/L (98-107); Glucose 92 mg/dL (70-105); Osmolality,Calculated 288 (280-300); Phosphorous 2.8 mg/dL (2.7-4.5); Potassium 3.8 mEq/L (3.5-5.1); Sodium 140 mEq/L (136-145); eGFR For African Americans > 60 (> 60); eGFR For Non-African Americans > 60 (> 60)
[2022-05-03] MEDS ORDERED: Iron Sucrose Complex 200 MG in 0.9 % Sodium Chloride 100 ML IVPB ONE (08:30)
[2022-05-03] MEDS ORDERED: Sennosides 8.6 MG TABLET PO SCH (09:00)
[2022-05-03] MEDS: Gabapentin 300 MG CAPSULE PO SCH (09:21)
[2022-05-03 11:35] VITALS: BP 145/80; PULSE 66; TEMP 98; O2SAT 94
== END 2022-05-03 15:18 | disposition home or self-care (01) ==
LOC: 2ANU → SUATTDRO 05-01 02:00
PROVIDERS: ADMIT Internal Medicine; ATTEND Internal Medicine